=== PATIENT | female | born 2005 | race Asian ===

== ENCOUNTER 2024-04-10 14:34 | Outpatient (CLI) | payer OTHER | END 2024-04-10 14:35 | disposition home or self-care (01) | LOC: SCSRAD 14:34 | PROVIDERS: ATTEND Physician Assistant | DX: S80.02XA Contusion of left knee, initial encounter (principal); M25.552 Pain in left hip; V89.2XXA Person injured in unspecified motor-vehicle accident, traffic, initial encounter ==